=== PATIENT | male | born 1985 | race American Indian/Alaskan Native ===

== ENCOUNTER 2021-01-16 14:45 | Emergency (ER) | payer OTHER ==
--- NOTE | 2021-01-16 15:57 | Event Note ---
ED Screening Note Date of service: 01/16/21 Time: 15:56 ED Screening Note: RED AND SWOLLEN L ANKLE DOPPLER BIPHASIC DP AND PT ON PROVIDER EXAM FOOT WARM PLUS 1 DP ON PALPATION NO OPEN WOUND This initial assessment/diagnostic orders/clinical plan/treatment(s) is/are subject to change based on patients health status, clinical progression and re- assessment by fellow clinical providers in the ED. Further treatment and workup at subsequent clinical providers discretion. Patient/guardian urged not to elope from the ED as their condition may be serious if not clinically assessed and managed. Initial orders include: LABS/LACTIC RO DVT V CELLULITIS
[2021-01-16 15:59] VITALS: BP 151/93
[2021-01-16] MEDS ORDERED: CLINDAMYCIN 600 MG/50 mL 600 MG/50 ML BAG IV ONE ×2 (16:14→19:40)
[2021-01-16] MEDS ORDERED: KETOROLAC 30 MG/1 ML INJ IV ONE ×2 (16:15→19:41)
--- NOTE | 2021-01-16 17:03 | Vascular Lab Report ---
DUPLEX DOPPLER LOWER EXTREMITY VEINS, LEFT INDICATION: SWELLING. TECHNIQUE: Duplex doppler imaging was performed through the veins of the left lower extremity using venous compr ession and other maneuvers. COMPARISON: None available. FINDINGS: Common femoral vein: Negative. Superficial femoral vein: Negative. Popliteal vein: Negative. Calf veins: Negative. Additional findings: Soft tissue edema at the calf. Prominent groin node measuring 4.7 x 1 cm is like ly reactive. IMPRESSION: Negative for DVT. Signer Name: Ramesh Velasquez MD Signed: 01/16/2021 4:58 PM Workstation Name: [id number]
--- NOTE | 2021-01-16 18:02 | Emergency Department Report ---
ED Extremity Problem HPI - General Chief complaint: Extremity Injury, Lower Stated complaint: NO PULSE IN FOOT Time Seen by Provider: 01/16/21 16:13 Source: patient Mode of arrival: Ambulatory Limitations: No Limitations - History of Present Illness Initial comments: Patient is a 35-year-old F [place] male who is presenting with left leg swelling. Patient states the pain is estimated 5 out of 10 in severity is aching throbbing pain. Denies any trauma. Patient states that he first noticed the discomfort 2 days ago. Denies diabetes open wounds fevers chills chest pain or shortness of breath. - Related Data Previous Rx's Medication Instructions Recorded Last Taken Type Clindamycin [Clindamycin CAP] 300 mg PO Q8H #30 cap 01/16/21 Unknown Rx HYDROcodone/APAP 5-325 [[place] 1 each PO Q6HR PRN #14 tablet 01/16/21 Unknown Rx 5/325] Ketorolac [Toradol] 10 mg PO Q6H PRN #20 tablet 01/16/21 Unknown Rx ED Review of Systems ROS: Stated complaint: NO PULSE IN FOOT Other details as noted in HPI Comment: All other systems reviewed and negative ED Past Medical Hx - Past Medical History Previous Medical History?: No - Surgical History Past Surgical History?: No - Social History Smoking Status: Unknown if ever smoked - Medications Home Medications: Home Medications Medication Instructions Recorded Confirmed Last Taken Type Clindamycin [Clindamycin CAP] 300 mg PO Q8H #30 cap 01/16/21 Unknown Rx HYDROcodone/APAP 5-325 [[place] 1 each PO Q6HR PRN #14 tablet 01/16/21 Unknown Rx 5/325] Ketorolac [Toradol] 10 mg PO Q6H PRN #20 tablet 01/16/21 Unknown Rx ED Physical Exam - General Limitations: No Limitations General appearance: alert, in no apparent distress - Head Head exam: Present: atraumatic, normocephalic - Eye Eye exam: Present: normal appearance - ENT ENT exam: Present: mucous membranes moist - Neck Neck exam: Present: normal inspection - Respiratory Respiratory exam: Present: normal lung sounds bilaterally. Absent: respiratory distress - Cardiovascular Cardiovascular Exam: Present: regular rate, normal rhythm. Absent: systolic murmur, diastolic murmur, rubs, gallop - GI/Abdominal GI/Abdominal exam: Present: soft, normal bowel sounds. Absent: distended, tenderness, guarding - Rectal Rectal exam: Present: deferred - Extremities Exam Extremities exam: Present: normal inspection - Back Exam Back exam: Present: normal inspection - Neurological Exam Neurological exam: Present: alert, oriented X3 - Psychiatric Psychiatric exam: Present: normal affect, normal mood - Skin Skin exam: Present: warm, dry, intact, normal color. Absent: rash - Other Other exam information: Patient with some swelling from just below the left knee to the upper ankle anteriorly associated with erythema and warmth. Area does wrap around to the lower posterior calf. The upper calf is spared. No discomfort behind the left knee. Foot does have a strong pulse which is dopplerable ED Course Vital Signs 01/16/21 15:58 Temperature 98.6 F Pulse Rate 96 H Blood Pressure 151/93 O2 Sat by Pulse 98 Oximetry ED Medical Decision Making - Radiology Data [facility] [address] [place] [address] Vascular Lab Report Signed Patient: SYLVIE CARLOS MR#: [id number] : 1985 Acct:[id number] Age/Sex: 35 / M ADM Date: 01/16/21 Loc: ED Attending Dr: Ordering Physician: LILI FRIEDMAN Date of Service: 01/16/21 Procedure(s): VL venous duplex LE LT Accession Number(s): [id number] cc: LILI FRIEDMAN DUPLEX DOPPLER LOWER EXTREMITY VEINS, LEFT INDICATION: SWELLING. TECHNIQUE: Duplex doppler imaging was performed through the veins of the left lower extremity using venous compression and other maneuvers. COMPARISON: None available. FINDINGS: Common femoral vein: Negative. Superficial femoral vein: Negative. Popliteal vein: Negative. Calf veins: Negative. Additional findings: Soft tissue edema at the calf. Prominent groin node measuring 4.7 x 1 cm is likely reactive. IMPRESSION: Negative for DVT. Signer Name: Ramesh Velasquez MD Signed: 01/16/2021 4:58 PM Workstation Name: [id number] - Medical Decision Making Patient has no DVT seen on Doppler ultrasound. Patient be started on clindamycin for cellulitis and be discharged home. Critical care attestation.: If time is entered above; I have spent that time in minutes in the direct care of this critically ill patient, excluding procedure time. ED Disposition Clinical Impression: Left leg cellulitis Disposition: 01 HOME / SELF CARE / HOMELESS Is pt being admited?: No Does the pt Need Aspirin: No Condition: Stable Instructions: Cellulitis, Adult Referrals: PRIMARY CARE, [Primary Care Provider] - 3-5 Days Time of Disposition: 18:02
== END 2021-01-16 20:22 | disposition home or self-care (01) ==
LOC: ED 14:45
DX: L03.116 Cellulitis of left lower limb (principal)
CPT/HCPCS: 93971; 96365; 96375; 99283; J1885

== ENCOUNTER 2021-04-23 15:04 | Emergency (ER) | payer OTHER ==
[2021-04-23 15:16] VITALS: BP 150/102
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
== END 2021-04-23 17:18 | disposition home or self-care (01) ==
LOC: ED 15:04
DX: M54.2 Cervicalgia (principal); R51.9 Headache, unspecified; Z88.0 Allergy status to penicillin; Z79.899 Other long term (current) drug therapy; V87.7XXA Person injured in collision between other specified motor vehicles (traffic), initial encounter; Y93.89 Activity, other specified; Y92.488 Other paved roadways as the place of occurrence of the external cause; Y99.8 Other external cause status
CPT/HCPCS: 72040; 99283